=== PATIENT | female | born 1975 | race African-American/Black ===

== ENCOUNTER 2024-11-12 10:28 | Outpatient (AMB) | payer OTHER, SELFPAY ==
--- NOTE | 2024-11-12 10:30 | A.OFFVIS_ITS ---
Vital Signs 11/12/24 10:31 Height 5 ft 3 in Weight 207 lb BMI 36.7 BP 110/70 Blood Pressure Location Lt brachial Position Sitting Respiration 16 Pulse 90 Pulse Source Pulse Oximeter Pulse Oximetry (%) 97 Oxygen Delivery Method Room Air Intake Visit Reasons: Lumbar spondylosis Clinical Pharmacy Manager Required: No Allergies No Known Allergies Allergy (Verified 11/12/24 10:34) Medication List - Last Reconciled 11/12/24 by Isabella Lepe LPN albuterol sulfate 90 mcg/actuation inhalation sumatriptan succinate 50 mg PO DAILY PRN HPI HPI Lumbar spondylosis: Details: History of Present Illness The patient is a 49-year-old female presenting with back pain following a fall at work. The incident occurred on April 07, 2024, when she slipped on ice, injuring her upper and lower back and hitting the back of her head. She did not experience any loss of consciousness at the time of the fall. Post-fall, she developed pain between her shoulder blades and across her lower back, with tenderness and tightness that worsened over time. She has been experiencing pain rated at 6/10, which increases to 6-7/10 in the afternoon and evening, but is relatively better in the morning at 5/10. The patient has been using muscle relaxants, applying heat, and resting at home, which have provided mild symptom relief. She has also engaged in stretching exercises and used a roller to alleviate upper back tightness. She attended physical therapy sessions twice a week for two months, where she was given stretches to perform at home. An MRI was conducted at [facility], but she did not bring the disc with her to the appointment. The patient reports that her lower back pain has improved, but she continues to experience symptoms suggestive of sciatica, with pain radiating down her legs. Her upper back remains tight but is less problematic than her lower back. The MRI findings indicated degenerative disc disease and arthritic changes in the spine, but no nerve compression was observed. Pain Description - Onset: Pain began after a fall on April 07, 2024. - Quality: Pain is described as tightness and tenderness. - Location: Pain is located between the shoulder blades and across the lower back. - Radiation: Pain radiates down the legs, suggestive of sciatica. - Severity: Pain is rated at 6/10, increasing to 6-7/10 in the afternoon and evening, and 5/10 in the morning. - Exacerbating Factors: Pain worsens with activity throughout the day. - Relieving Factors: Mild relief with muscle relaxants, heat application, and stretching exercises. Physical Exam - Appears afebrile. - Alert and oriented. - Mood and affect appropriate. - Follows and participates in conversation appropriately. - Respiratory effort is unlabored. Results - MRI: Degenerative disc disease and arthritic changes in the spine, no nerve compression observed. Pain Management - Affect: Pain impacts daily activities, causing discomfort and limiting mobil ity. - Analgesia: Current pain level is 6-7/10, managed with muscle relaxants and heat application. - Adverse Effects: No adverse effects from current pain management reported. - Activities of Daily Living: Pain interferes with daily activities, worsens with movement. - Aberrant Drug Related Behaviors: No aberrant behaviors reported. [facility] Medical History (Updated 11/08/24 @ 09:27 by Isabella Lepe LPN) Lumbar radiculopathy Lumbar spondylolysis Physical Exam Vital Signs: Last Vital Signs Pulse 90 11/12/24 10:31 Resp 16 11/12/24 10:31 BP 110/70 11/12/24 10:31 Pulse Ox 97 11/12/24 10:31 Oxygen Delivery Method Room Air 11/12/24 10:31 BMI result Body Mass Index 36.7 Assessment & Plan Assessment & Plan (1) Lumbar spondylolysis: Code(s): M43.06 - Spondylolysis, lumbar region Category: Medical (2) Lumbar radiculopathy: Code(s): M54.16 - Radiculopathy, lumbar region Category: Medical Plan Plan Patient was informed and verbally consented to the use of an ambient scribe for clinic note documentation during this visit. 1. Degenerative Disc Disease - Recommendation to continue with stretching exercises and swimming for three to four months. - If symptoms persist, consider further intervention with injections. 2. Arthritic Joints In The Spine - Engage in weightless exercises such as swimming to relieve joint stress. 3. Sciatica - Continue with current pain management strategies and monitor symptoms. Discussion Notes I discussed with the patient that her MRI showed degenerative disc disease and arthritic changes, but no nerve compression. I recommended continuing with stretching and swimming for three to four months to alleviate symptoms. If symptoms persist, we may consider further interventions such as injections. Patient Instructions - Continue stretching exercises and consider swimming to help relieve back pain. - Monitor symptoms and return for follow-up if pain persists after three to four months. - Avoid any procedures or injections until further evaluation. Coding Level of Care Code New Pt Level 4 (24336) Diagnoses Lumbar spondylolysis M43.06 Lumbar radiculopathy M54.16
[2024-11-12 10:31] VITALS: BP 110/70; PULSE 90; RESP 16; O2SAT 97; BMI 36.7
--- OUTSIDE RECORDS SUMMARY | 2024-11-12 11:20 | XMS_ITS | Data Portability ---
Author Organization [facility], Main Office Address [address] [facility] [address] [place] [id number] Care Team Providers Care Manager Shipping Name Role Phone ESTIVEN WILSONENIA Transplant Nurse Practitioner [phone] SOFIA CENTENO Primary Care Provider LIANNE PIZARRO [employer] Assessment Encounter Date Assessment Date Assessment LastModified by Organization Details LastModified Time 05/01/2023 05/01/2023 Discussed with patient the signs/symptom s warranted for a return to office visit and/or an ER visit. Patient understood and agreed with the plan. Not available 05/01/2023 15:14:11 Plan of Treatment Reminders Order Date Submit Date Provider Last Modified By Organization Details Last Modified Time Details Appointments UV30 2025 09:30A M SOFIA CENTENO MD Not available Not available Not available Lab pap, IG + HPV, cervic al 2024 025 VERN [facility] (Centralized Electronic Ordering - All Locations), Patient Can Go To The Location Of Their Choice, [id number] 06/17/2024 12:07:09 lipid panel, serum 2024 025 VERN [facility], [address], [place], [address], 06/16/2024 06:12:34 BMP, serum or plasma 2024 025 [facility]ERN [facility], [address], [place], [address], 06/16/2024 06:12:34 CBC w/ auto diff 2024 025 VERN [facility], [address], [place], [address], 06/16/2024 06:12:33 TSH, ultra- sensit madelyn, serum 2024 025 [facility]ERN [facility], [address], [place], [address], 06/16/2024 06:12:35 rapid flu (A+B) 2023 024 VERN In-Office Order, Internal Use Only DO Not Attach Compendium DO Not Attach Compendium, Do Not Delete/merge, [id number] 05/01/2023 16:00:02 lipid panel, serum 2023 024 VERN [facility], [address], [place], [address], 05/01/2023 06:08:09 BMP, serum or plasma 2023 024 VERN [facility], [address], [place], [address], 05/01/2023 06:08:09 CBC w/ auto diff 2023 024 VERN [facility], [address], [place], [address], 05/01/2023 06:08:07 TSH, ultra- sensit madelyn, serum 2023 024 VERN [facility], [address], [place], [address], 05/01/2023 06:08:10 vagina l pathog ens panel, ABHI+pr obe, vagina l fluid 2023 024 VERN [facility] (Centralized Electronic Ordering - All Locations), Patient Can Go To The Location Of Their Choice, [id number] 05/02/2023 06:08:16 HIV 1 + 2 RNA panel, ABHI+pr obe, serum or plasma 2023 024 VERN [facility] (Centralized Electronic Ordering - All Locations), Patient Can Go To The Location Of Their Choice, [id number] 05/01/2023 06:08:10 Referral sleep medici ne referr al 2023 024 [facility], [address] [facility], [place], [address], 05/20/2023 14:40:59 Procedures None record ed. Surgeries None record ed. Imaging MAMMO, screen ing, bilate ral 2024 025 VERN Not available 08/09/2024 10:40:50 Medication Orders sumatr iptan 50 mg tablet 2024 025 [facility]/Pharmacy #[id number], [address] [place], [address], 06/15/2024 09:08:31 sumatr iptan 50 mg tablet 2023 024 [email or web address] s [facility]/Pharmacy #0488, [address] [place], [address], 05/01/2023 15:02:34 albute rol sulfat e HFA 90 mcg/ac tuatio n aeroso l inhale r 2022 023 [facility]/Pharmacy #0488, [address] [place], [address], 11/15/2022 16:11:03 Advair Diskus 500 mcg-50 mcg/do se powder for inhala tion 2022 023 rolandoe [facility]/Pharmacy #0488, [address] [place], [address], 04/29/2023 10:21:37 sumatr iptan 50 mg tablet 2022 023 [facility]/Pharmacy #[id number], [address] [place], [address], 11/15/2022 16:11:03 valacy clovir 1 gram tablet 2022 023 [facility]/Pharmacy #[id number], [address] [place], [address], 04/29/2023 10:22:05 sumatr iptan 50 mg tablet 2022 023 VERN [facility]/Pharmacy #0488, [address] [place], [address], 10/11/2022 15:59:13 Medrol (Reyes) 4 mg tablet s in a dose pack [address]/Pharmacy #0488, [address] [place], [address], 06/15/2024 08:47:45 hydrox yzine HCl 25 mg tablet 2022 023 [address] [place], [address], 11/15/2022 15:52:48 triamc inolon e aceton raimundo 0.5 % topica l cream 2022 023 [facility]/Pharmacy #[id number], [address] [place], [address], 04/29/2023 10:22:09 Patient TargetsNo targets recorded. Patient Instructions Encounter Date Encounter Id Patient Instructions Last Modified By Organization Details Last Modified Time 10/11/2022 [id number] cold sores: care instructions [email or web address] Not available 10/11/2022 15:59:08 04/29/2023 [id number] well visit, wome n 50 to 65: care instructions Not available 04/29/2023 10:41:57 medical record request* [email or web address] Not available 04/29/2023 15:12:16 sleep apnea: car e instructions Not available 04/29/2023 10:42:35 starting a weigh t loss plan: care instructions Not available 04/29/2023 12:19:20 Nutrition Referral and Weight Management Follow-up Information Not available 04/29/2023 12:19:20 HIV testing: car e instructions Not available 04/29/2023 10:41:58 05/01/2023 [id number] viral respirator y infection: care instructions Not available 05/01/2023 15:31:37 06/15/2024 [id number] well visit, wome n 50 to 65: care instructions Not available 06/15/2024 09:08:29 sleep apnea: car e instructions Not available 06/15/2024 09:08:29 Reason for Referral Sleep Medicine Referral for Sleep apnea Referring Physician: Sofia Centeno, Family Medicine, Encounter Date: 04/29/2023 Results Created Date Observation Date Name Description Value Unit Range Abnormal Flag Note LastModifiedBy Organization Detail LastModifiedTime 04/29/19 24 04/30/2023 CBC WITH DIFFE RENTI AL/PL ATELE T WBC 4.0 x10e3 /uL 3.4-10 .8 Not Available [facility] ([facility]) [address] [place], [address], 05/01/2023 06:08:07 04/29/19 24 04/30/2023 CBC WITH DIFFE RENTI AL/PL ATELE T RBC 3.88 x10e6 /uL 3.77-5 .28 Not Available [facility] ([facility]) [address] [place], [address], 05/01/2023 06:08:07 04/29/19 24 04/30/2023 CBC WITH DIFFE RENTI AL/PL ATELE T hemoglobin 11.0 g/dL 11.1-1 5.9 below low normal Not Available [facility] ([facility]) [address] [place], [address], 05/01/2023 06:08:07 04/29/19 24 04/30/2023 CBC WITH DIFFE RENTI AL/PL ATELE T hematocrit 32.7 % 34.0-4 6.6 below low normal Not Available [facility] ([facility]) [address] [facility], [place], [address], 05/01/2023 06:08:07 04/29/19 24 04/30/2023 CBC WITH DIFFE RENTI AL/PL ATELE T MCV 84 fL 79-97 Not Available [facility] ([facility]) [address] [place], [address], 05/01/2023 06:08:07 04/29/19 24 04/30/2023 CBC WITH DIFFE RENTI AL/PL ATELE T MCH 28.4 pg 26.6-3 3.0 Not Available [facility] ([facility]) [address] [place], [address], 05/01/2023 06:08:07 04/29/19 24 04/30/2023 CBC WITH DIFFE RENTI AL/PL ATELE T MCHC 33.6 g/dL 31.5-3 5.7 Not Available [facility] ([facility]) [address] [facility], [place], [address], 05/01/2023 06:08:07 04/29/19 24 04/30/2023 CBC WITH DIFFE RENTI AL/PL ATELE T RDW 13.0 % 11.7-1 5.4 Not Available [facility] ([facility]) [address] [place], [address], 05/01/2023 06:08:07 04/29/19 24 04/30/2023 CBC WITH DIFFE RENTI AL/PL ATELE T platelets 354 x10e3 /uL 150-45 0 Not Available [facility] ([facility]) [address] [place], [address], 05/01/2023 06:08:07 04/29/19 24 04/30/2023 CBC WITH DIFFE RENTI AL/PL ATELE T neutrophils 38 % not estab. Not Available [facility] ([facility]) [address] [facility], [place], [address], 05/01/2023 06:08:07 04/29/19 24 04/30/2023 CBC WITH DIFFE RENTI AL/PL ATELE T lymphs 40 % not estab. Not Available [facility] ([facility]) [address] [facility], [place], [address], 05/01/2023 06:08:07 04/29/19 24 04/30/2023 CBC WITH DIFFE RENTI AL/PL ATELE T monocytes 14 % not estab. Not Available [facility] ([facility]) [address] [facility], [place], [address], 05/01/2023 06:08:07 04/29/19 24 04/30/2023 CBC WITH DIFFE RENTI AL/PL ATELE T eos 6 % not estab. Not Available [facility] ([facility]) [address] [facility], [place], [address], 05/01/2023 06:08:07 04/29/19 24 04/30/2023 CBC WITH DIFFE RENTI AL/PL ATELE T basos 2 % not estab. Not Available [facility] ([facility]) [address] [facility], [place], [address], 05/01/2023 06:08:07 04/29/19 24 04/30/2023 CBC WITH DIFFE RENTI AL/PL ATELE T immature cells POINT OF SALE ASSOCIATE Not Available [facility] ([facility]) [address] [facility], [place], [address], 05/01/2023 06:08:07 04/29/19 24 04/30/2023 CBC WITH DIFFE RENTI AL/PL ATELE T neutrophils (absolute) 1.5 x10e3 /uL 1.4-7. 0 Not Available [facility] ([facility]) [address] [facility], [place], [address], 05/01/2023 06:08:07 04/29/19 24 04/30/2023 CBC WITH DIFFE RENTI AL/PL ATELE T lymphs (absolute) 1.6 x10e3 /uL 0.7-3. 1 Not Available [facility] ([facility]) [address] [facility], [place], [address], 05/01/2023 06:08:07 04/29/19 24 04/30/2023 CBC WITH DIFFE RENTI AL/PL ATELE T monocytes(ab solute) 0.6 x10e3 /uL 0.1-0. 9 Not Available [facility] ([facility]) [address] [facility], [place], [address], 05/01/2023 06:08:07 04/29/19 24 04/30/2023 CBC WITH DIFFE RENTI AL/PL ATELE T eos (absolute) 0.2 x10e3 /uL 0.0-0. 4 Not Available [facility] ([facility]) [address] [facility], [place], [address], 05/01/2023 06:08:07 04/29/19 24 04/30/2023 CBC WITH DIFFE RENTI AL/PL ATELE T baso (absolute) 0.1 x10e3 /uL 0.0-0. 2 Not Available [facility] ([facility]) [address] [facility], [place], [address], 05/01/2023 06:08:07 04/29/19 24 04/30/2023 CBC WITH DIFFE RENTI AL/PL ATELE T immature granulocytes 0 % not estab. Not Available [facility] ([facility]) [address] [facility], [place], [address], 05/01/2023 06:08:07 04/29/19 24 04/30/2023 CBC WITH DIFFE RENTI AL/PL ATELE T immature grans (abs) 0.0 x10e3 /uL 0.0-0. 1 Not Available [facility] ([facility]) [address] [place], [address], 05/01/2023 06:08:07 04/29/19 24 04/30/2023 CBC WITH DIFFE RENTI AL/PL ATELE T NRBC POINT OF SALE ASSOCIATE Not Available [facility] ([facility]) [address] [place], [address], 05/01/2023 06:08:07 04/29/19 24 04/30/2023 CBC WITH DIFFE RENTI AL/PL ATELE T hematology comments: POINT OF SALE ASSOCIATE Not Available [facility] ([facility]) [address] [facility], [place], [address], 05/01/2023 06:08:07 04/29/19 24 04/30/2023 BASIC METAB OLIC PANEL (8) glucose 95 mg/dL 70-99 Not Available [facility] ([facility]) [address] [place], [address], 05/01/2023 06:08:08 04/29/19 24 04/30/2023 BASIC METAB OLIC PANEL (8) BUN 9 mg/dL 6-24 Not Available [facility] ([facility]) [address] [place], [address], 05/01/2023 06:08:08 04/29/19 24 04/30/2023 BASIC METAB OLIC PANEL (8) creatinine 0.86 mg/dL 0.57-1 .00 Not Available [facility] ([facility]) [address] [place], [address], 05/01/2023 06:08:08 04/29/19 24 04/30/2023 BASIC METAB OLIC PANEL (8) eGFR 82 mL/mi n/1.7 3 >59 Not Available [facility] ([facility]) [address] [place], [address], 05/01/2023 06:08:08 04/29/19 24 04/30/2023 BASIC METAB OLIC PANEL (8) BUN/creatini ne ratio 10 9-23 Not Available [facility] ([facility]) [address] [facility] [place], [address], 05/01/2023 06:08:08 04/29/19 24 04/30/2023 BASIC METAB OLIC PANEL (8) sodium 140 mmol/ L 134-14 4 Not Available [facility] ([facility]) [address] [facility] [place], [address], 05/01/2023 06:08:08 04/29/19 24 04/30/2023 BASIC METAB OLIC PANEL (8) potassium 4.2 mmol/ L 3.5-5. 2 Not Available [facility] ([facility]) [address] [place], [address], 05/01/2023 06:08:08 04/29/19 24 04/30/2023 BASIC METAB OLIC PANEL (8) chloride 105 mmol/ L 96-106 Not Available [facility] ([facility]) [address] [place], [address], 05/01/2023 06:08:08 04/29/19 24 04/30/2023 BASIC METAB OLIC PANEL (8) carbon dioxide, total 20 mmol/ L 20-29 Not Available [facility] ([facility]) [address] [place], [address], 05/01/2023 06:08:08 04/29/19 24 04/30/2023 BASIC METAB OLIC PANEL (8) calcium 9.1 mg/dL 8.7-10 .2 Not Available [facility] ([facility]) [address] [place], [address], 05/01/2023 06:08:08 04/29/19 24 04/30/2023 LIPID PANEL cholesterol, total 154 mg/dL 100-19 9 Not Available [facility] ([facility]) [address] [facility], [place], [address], 05/01/2023 06:08:09 04/29/19 24 04/30/2023 LIPID PANEL triglyceride s 205 mg/dL 0-149 above high normal Not Available [facility] ([facility]) [address] [facility], [place], [address], 05/01/2023 06:08:09 04/29/19 24 04/30/2023 LIPID PANEL HDL cholesterol 48 mg/dL >39 Not Available [facility] ([facility]) [address] [facility], [place], [address], 05/01/2023 06:08:09 04/29/19 24 04/30/2023 LIPID PANEL VLDL cholesterol marcella 34 mg/dL 5-40 Not Available [facility] ([facility]) [address] [facility], [place], [address], 05/01/2023 06:08:09 04/29/19 24 04/30/2023 LIPID PANEL LDL chol calc ([facility]) 72 mg/dL 0-99 Not Available [facility] ([facility]) [address] [facility], [place], [address], 05/01/2023 06:08:09 04/29/19 24 04/30/2023 LIPID PANEL comment: POINT OF SALE ASSOCIATE Not Available [facility] ([facility]) [address] [facility], [place], [address], 05/01/2023 06:08:09 04/29/19 24 04/30/2023 HIV-1 /HIV- 2 QUALI TATIV E RNA HIV-1 RNA Non Reacti ve non reacti ve Not Available [facility] ([facility]) [address] [place], [address], 05/01/2023 06:08:10 04/29/19 24 04/30/2023 HIV-1 /HIV- 2 QUALI TATIV E RNA HIV-2 RNA Non Reacti ve non reacti ve Not Available [facility] ([facility]) [address] [facility], [place], [address], 05/01/2023 06:08:10 04/29/19 24 04/30/2023 TSH RFX ON ABNOR MAL TO FREE T4 TSH 2.410 uIU/m L 0.450- 4.500 Not Available [facility] ([facility]) [address] [facility], [place], [address], 05/01/2023 06:08:10 04/29/19 24 04/30/2023 NUSWA B VAGIN ITIS PLUS (VG+) atopobium vaginae High - 2 score abnormal Not Available [facility] ([facility]) [address] [facility], [place], [address], 05/02/2023 06:08:16 04/29/19 24 04/30/2023 NUSWA B VAGIN ITIS PLUS (VG+) bvab 2 High - 2 score abnormal Not Available [facility] ([facility]) [address] [facility], [place], [address], 05/02/2023 06:08:16 04/29/19 24 04/30/2023 NUSWA B VAGIN ITIS PLUS (VG+) megasphaera 1 High - 2 score abnormal Calcu late total score by salenain g the 3 indiv idual bacte rial vagin osis (BV) marke r score s toget her. Total score is inter prete d as follo ws: Total score 0-1: Indic ates the absen ce of BV. Total score 2: Indet ermin ate for BV. Addit ional clini marcella data shoul d be evalu ated to estab killian a diagn osis. Total score 3-6: Indic ates the prese nce of BV. This test was devel oped and its perfo rmanc e antionette cteri stics deter mined by [facility]. It has not been clear ed or appro faizan by the Food and Drug Admin istra tion. Not Available [facility] ([facility]) [address] [place], [address], 05/02/2023 06:08:16 04/29/19 24 05/01/2023 NUSWA B VAGIN ITIS PLUS (VG+) shira albicans, ABHI Positi ve negati ve abnormal Not Available [facility] ([facility]) [address] [place], [address], 05/02/2023 06:08:16 04/29/19 24 05/01/2023 NUSWA B VAGIN ITIS PLUS (VG+) shira glabrata, ABHI Negati ve negati ve Not Available [facility] ([facility]) [address] [place], [address], 05/02/2023 06:08:16 04/29/19 24 05/02/2023 NUSWA B VAGIN ITIS PLUS (VG+) trich vag by ABHI Negati ve negati ve Not Available [facility] ([facility]) [address] [place], [address], 05/02/2023 06:08:16 04/29/19 24 05/02/2023 NUSWA B VAGIN ITIS PLUS (VG+) chlamydia trachomatis, ABHI Negati ve negati ve Not Available [facility] ([facility]) [address] [place], [address], 05/02/2023 06:08:16 04/29/19 24 05/02/2023 NUSWA B VAGIN ITIS PLUS (VG+) neisseria gonorrhoeae, ABHI Negati ve negati ve Not Available [facility] ([facility]) [address] [place], [address], 05/02/2023 06:08:16 05/01/19 24 05/01/2023 rapid flu (A+B) Flu A negati ve Not Available In-Office Order Internal Use Only DO Not Attach Compendium DO Not Attach Compendium, Do Not Delete/merge, [id number] 05/01/2023 15:16:09 05/01/19 24 05/01/2023 rapid flu (A+B) Flu B negati ve Not Available In-Office Order Internal Use Only DO Not Attach Compendium DO Not Attach Compendium, Do Not Delete/merge, [id number] 05/01/2023 15:16:09 06/16/19 25 06/15/2024 CBC WITH DIFFE RENTI AL/PL ATELE T WBC 6.0 x10e3 /uL 3.4-10 .8 normal Not Available [facility] ([facility]) [address] [place], [address], 06/16/2024 06:12:33 06/16/19 25 06/15/2024 CBC WITH DIFFE RENTI AL/PL ATELE T RBC 4.08 x10e6 /uL 3.77-5 .28 normal Not Available [facility] ([facility]) [address] [place], [address], 06/16/2024 06:12:33 06/16/19 25 06/15/2024 CBC WITH DIFFE RENTI AL/PL ATELE T hemoglobin 11.5 g/dL 11.1-1 5.9 normal Not Available [facility] ([facility]) [address] [place], [address], 06/16/2024 06:12:33 06/16/19 25 06/15/2024 CBC WITH DIFFE RENTI AL/PL ATELE T hematocrit 34.3 % 34.0-4 6.6 normal Not Available [facility] ([facility]) [address] [place], [address], 06/16/2024 06:12:33 06/16/19 25 06/15/2024 CBC WITH DIFFE RENTI AL/PL ATELE T MCV 84 fL 79-97 normal Not Available [facility] ([facility]) [address] [facility], [place], [address], 06/16/2024 06:12:33 06/16/1906/15/2024 CBC WITH DIFFE RENTI AL/PL ATELE T MCH 28.2 pg 26.6-3 3.0 normal Not Available [facility] ([facility]) [address] [facility], [place], [address], 06/16/2024 06:12:33 06/16/19 25 06/15/2024 CBC WITH DIFFE RENTI AL/PL ATELE T MCHC 33.5 g/dL 31.5-3 5.7 normal Not Available [facility] ([facility]) [address] [facility], [place], [address], 06/16/2024 06:12:33 06/16/19 25 06/15/2024 CBC WITH DIFFE RENTI AL/PL ATELE T RDW 15.2 % 11.7-1 5.4 Not Available [facility] ([facility]) [address] [facility], [place], [address], 06/16/2024 06:12:33 06/16/1906/15/2024 CBC WITH DIFFE RENTI AL/PL ATELE T platelets 307 x10e3 /uL 150-45 0 normal Not Available [facility] ([facility]) [address] [place], [address], 06/16/2024 06:12:33 06/16/1906/15/2024 CBC WITH DIFFE RENTI AL/PL ATELE T neutrophils 36 % not estab. normal Not Available [facility] ([facility]) [address] [place], [address], 06/16/2024 06:12:33 06/16/19 25 06/15/2024 CBC WITH DIFFE RENTI AL/PL ATELE T lymphs 49 % not estab. normal Not Available [facility] ([facility]) [address] [place], [address], 06/16/2024 06:12:33 06/16/19 25 06/15/2024 CBC WITH DIFFE RENTI AL/PL ATELE T monocytes 10 % not estab. normal Not Available [facility] ([facility]) [address] [facility], [place], [address], 06/16/2024 06:12:33 06/16/19 25 06/15/2024 CBC WITH DIFFE RENTI AL/PL ATELE T eos 4 % not estab. normal Not Available [facility] ([facility]) [address] [place], [address], 06/16/2024 06:12:33 06/16/19 25 06/15/2024 CBC WITH DIFFE RENTI AL/PL ATELE T basos 1 % not estab. normal Not Available [facility] ([facility]) [address] [place], [address], 06/16/2024 06:12:33 06/16/19 25 06/15/2024 CBC WITH DIFFE RENTI AL/PL ATELE T immature cells POINT OF SALE ASSOCIATE Not Available [facility] ([facility]) [address] [place], [address], 06/16/2024 06:12:33 06/16/19 25 06/15/2024 CBC WITH DIFFE RENTI AL/PL ATELE T neutrophils (absolute) 2.2 x10e3 /uL 1.4-7. 0 normal Not Available [facility] ([facility]) [address] [place], [address], 06/16/2024 06:12:33 06/16/1906/15/2024 CBC WITH DIFFE RENTI AL/PL ATELE T lymphs (absolute) 2.9 x10e3 /uL 0.7-3. 1 normal Not Available [facility] ([facility]) [address] [place], [address], 06/16/2024 06:12:33 06/16/19 25 06/15/2024 CBC WITH DIFFE RENTI AL/PL ATELE T monocytes(ab solute) 0.6 x10e3 /uL 0.1-0. 9 normal Not Available [facility] ([facility]) [address] [facility], [place], [address], 06/16/2024 06:12:33 06/16/1906/15/2024 CBC WITH DIFFE RENTI AL/PL ATELE T eos (absolute) 0.3 x10e3 /uL 0.0-0. 4 normal Not Available [facility] ([facility]) [address] [place], [address], 06/16/2024 06:12:33 06/16/19 25 06/15/2024 CBC WITH DIFFE RENTI AL/PL ATELE T baso (absolute) 0.1 x10e3 /uL 0.0-0. 2 normal Not Available [facility] ([facility]) [address] [place], [address], 06/16/2024 06:12:33 06/16/1906/15/2024 CBC WITH DIFFE RENTI AL/PL ATELE T immature granulocytes 0 % not estab. Not Available [facility] ([facility]) [address] [place], [address], 06/16/2024 06:12:33 06/16/19 25 06/15/2024 CBC WITH DIFFE RENTI AL/PL ATELE T immature grans (abs) 0.0 x10e3 /uL 0.0-0. 1 Not Available [facility] ([facility]) [address] [place], [address], 06/16/2024 06:12:33 06/16/19 25 06/15/2024 CBC WITH DIFFE RENTI AL/PL ATELE T NRBC POINT OF SALE ASSOCIATE Not Available [facility] ([facility]) [address] [place], [address], 06/16/2024 06:12:33 06/16/19 25 06/15/2024 CBC WITH TAWNY ENGLISH AL/REDD Rosenberg hematology comments: POINT OF SALE ASSOCIATE Not Available [facility] ([facility]) [address], [place], [address], 06/16/2024 06:12:33 06/16/19 25 06/16/2024 BASIC METAB OLIC PANEL (8) glucose 98 mg/dL 70-99 normal Not Available [facility] ([facility]) [address], [place], [address], 06/16/2024 06:12:34 06/16/19 25 06/16/2024 BASIC METAB OLIC PANEL (8) BUN 15 mg/dL 6-24 normal Not Available [facility] ([facility]) [address] [facility], [place], [address], 06/16/2024 06:12:34 06/16/19 25 06/16/2024 BASIC METAB OLIC PANEL (8) creatinine 0.76 mg/dL 0.57-1 .00 normal Not Available [facility] ([facility]) [address] [facility], [place], [address], 06/16/2024 06:12:34 06/16/19 25 06/16/2024 BASIC METAB OLIC PANEL (8) eGFR 95 mL/mi n/1.7 3 >59 normal Not Available [facility] ([facility]) [address] [facility], [place], [address], 06/16/2024 06:12:34 06/16/19 25 06/16/2024 BASIC METAB OLIC PANEL (8) BUN/creatini ne ratio 20 9-23 normal Not Available [facility] ([facility]) [address] [facility], [place], [address], 06/16/2024 06:12:34 06/16/19 25 06/16/2024 BASIC METAB OLIC PANEL (8) sodium 139 mmol/ L 134-14 4 normal Not Available [facility] ([facility]) [address] [place], [address], 06/16/2024 06:12:34 06/16/19 25 06/16/2024 BASIC METAB OLIC PANEL (8) potassium 4.5 mmol/ L 3.5-5. 2 normal Not Available [facility] [facility]) [address] [place], [address], 06/16/2024 06:12:34 06/16/19 25 06/16/2024 BASIC METAB OLIC PANEL (8) chloride 104 mmol/ L 96-106 normal Not Available [facility] ([facility]) [address] [place], [address], 06/16/2024 06:12:34 06/16/19 25 06/16/2024 BASIC METAB OLIC PANEL (8) carbon dioxide, total 17 mmol/ L 20-29 below low normal Not Available [facility] ([facility]) [address] [place], [address], 06/16/2024 06:12:34 06/16/19 25 06/16/2024 BASIC METAB OLIC PANEL (8) calcium 9.1 mg/dL 8.7-10 .2 normal Not Available [facility] ([facility]) [address] [place], [address], 06/16/2024 06:12:34 06/16/19 25 06/16/2024 LIPID PANEL cholesterol, total 213 mg/dL 100-19 9 above high normal Not Available [facility] ([facility]) [address] [place], [address], 06/16/2024 06:12:34 06/16/19 25 06/16/2024 LIPID PANEL triglyceride s 134 mg/dL 0-149 normal Not Available [facility] ([facility]) [address] [place], [address], 06/16/2024 06:12:34 06/16/19 25 06/16/2024 LIPID PANEL HDL cholesterol 49 mg/dL >39 normal Not Available [facility] ([facility]) [address] [place], [address], 06/16/2024 06:12:34 06/16/19 25 06/16/2024 LIPID PANEL VLDL cholesterol marcella 24 mg/dL 5-40 Not Available [facility] ([facility]) [address] [place], [address], 06/16/2024 06:12:34 06/16/19 25 06/16/2024 LIPID PANEL LDL chol calc ([facility]) 140 mg/dL 0-99 above high normal Not Available [facility] ([facility]) [address] [place], [address], 06/16/2024 06:12:34 06/16/19 25 06/16/2024 LIPID PANEL LDL calc comment: POINT OF SALE ASSOCIATE Not Available [facility] ([facility]) [address] [place], [address], 06/16/2024 06:12:34 06/16/19 25 06/16/2024 TSH RFX ON ABNOR MAL TO FREE T4 TSH 1.590 uIU/m L 0.450- 4.500 normal Not Available [facility] ([facility]) [address] [place], [address], 06/16/2024 06:12:35 06/16/19 25 06/16/2024 IGP, APTIM A HPV HPV aptima Negati ve negati ve This nucle ic acid ampli ficat ion test detec ts fourt een high- risk HPV types (16,1 8,31, 33,35 ,39,4 5,51, 52,56 ,58,5 9,66, 68) witho ut diffe renti ation . Not Available [facility] ([facility]) [address] [place], [address], 06/17/2024 12:07:09 06/16/19 25 06/17/2024 IGP, APTIM A HPV diagnosis: Alexis MERCADO FOR INTRA EPITH ELIAL LESIO N OR AMBER GUPTA . Not Available [facility] ([facility]) [address] [place], [address], 06/17/2024 12:07:09 06/16/19 25 06/17/2024 IGP, APTIM A HPV specimen adequacy: Alexis rosenberg Satis facto ry for evalu ation . No endoc ervic al compo nent is ident ified . Not Available [facility] ([facility]) [address] [facility], [place], [address], 06/17/2024 12:07:09 06/16/19 25 06/17/2024 IGP, APTIM A HPV clinician provided ICD10: Alexis rosenberg R87.8 10 Not Available [facility] ([facility]) [address] [place], [address], 06/17/2024 12:07:09 06/16/19 25 06/17/2024 IGP, APTIM A HPV performed by: Alexis Paz, Cytol ogist (ASCP ) Not Available [facility] ([facility]) [address] [place],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 ZACHARY CARREON, MEDICATI ON AUTO-DELFINA CTIVATIO N; Not Available Not Available Not Available albuterol (refill) 90 mcg/actua tion aerosol inhaler Q 4 HOURS PRN 06/11 completed RECORDED 07/08/19 14 3:03PM BY HONG Taylor MD, ANNOTATI ON/ADDEN DUM; Not Available Not Available Not Available DentaGel 1.1 % 07/02 completed Not Available Not Available Not Available etonogest rel 0.12 mg-ethiny l estradiol 0.015 mg/24 hr vaginal ring PLEASE SEE ATTACHED FOR DETAILED DIRECTIO NS 06/15 completed Not Available Not Available Not Available azithromy reggie 500 mg tablet ONE TIME DOSE 01/07 completed RECORDED 01/10/20 09 9:55AM BY ALISHA MARIA MD, MEDICATI ON AUTO-DELFINA CTIVATIO N; Not Available Not Available Not Available cyclobenz aprine 5 mg tablet EVERY 8 HRS NEEDED FOR MUSCLE SPASM 11/15 completed RECORDED 11/21/19 12 3:45PM BY SUSAN CONWAY, MEDICATI ON AUTO-DELFINA CTIVATIO N;CAUTIO N DROWSINE SS Not Available Not Available Not Available Flovent HFA 110 mcg/actua tion aerosol inhaler Inhale 2 puffs twice a day by inhalati on route for 30 days. 03/21 completed Not Available Not Available Not Available naproxen TWO TIMES DAILY 12/05 completed RECORDED 12/06/19 12 6:57AM BY SUSAN CONWAY, MEDICATI ON AUTO-DELFINA CTIVATIO N; Not Available Not Available Not Available Hycotuss Expectora nt Q 4HR/PRN 05/03 completed RECORDED 05/08/19 07 9:32AM BY ABY BRAGG MD, MEDICATI ON AUTO-DELFINA CTIVATIO N; Not Available Not Available Not Available Vitamin D3 50 mcg (2,000 unit) capsule Take 1 capsule every day by oral route as directed for 90 days. 03/21 completed Not Available Not Available Not Available Alyacen 1/35 (28) 1 mg-35 mcg tablet DAILY 06/05 completed Not Available Not Available Not Available Larissia 0.1 mg-20 mcg tablet 03/21 completed Not Available Not Available Not Available Vitals Date Recorded Body height Body mass index (BMI) Body weight Heart rate Oxygen saturation Oxygen saturation in Arterial blood by Pulse oximetry Body temperature Systolic And Diastolic Provider Name and Address Organization Details Last Updated DateTime 4 160.02 cm 35 kg/m2 27150.8 g 93 /min 97 % 97 % 98.2 [degF] 106/73 mm[Hg] Brenona Carpio MA [facility] 4 10:20:48 Date Recorded Body height Body mass index (BMI) Body weight Heart rate Oxygen saturation Oxygen saturation in Arterial blood by Pulse oximetry Body temperature Systolic And Diastolic Provider Name and Address Organization Details Last Updated DateTime 4 160.02 cm 34.9 kg/m2 37517.7 g 94 /min 98 % 98 % 98 [degF] 108/73 mm[Hg] Royce lal MA [facility] 4 15:11:22 Date Recorded Body height Body mass index (BMI) Body weight Oxygen saturation Oxygen saturation in Arterial blood by Pulse oximetry Heart rate Body temperature Systolic And Diastolic Provider Name and Address Organization Details Last Updated DateTime 5 160.02 cm 36.4 kg/m2 67224.8 4 g 98 % 98 % 85 /min 97.4 [degF] 104/69 mm[Hg] Silva Carter MA [facility] 5 08:46:41 Date Recorded Body height Body mass index (BMI) Body weight Heart rate Oxygen saturation Oxygen saturation in Arterial blood by Pulse oximetry Body temperature Systolic And Diastolic Provider Name and Address Organization Details Last Updated DateTime 3 160.02 cm 33.7 kg/m2 32227.5 5 g 80 /min 99 % 99 % 97.8 [degF] 123/76 mm[Hg] Royce lal MA [facility] 3 15:33:25 Date Recorded Body height Body mass index (BMI) Body weight Oxygen saturation Oxygen saturation in Arterial blood by Pulse oximetry Heart rate Body temperature Systolic And Diastolic Provider Name and Address Organization Details Last Updated DateTime 3 160.02 cm 34.4 kg/m2 37100.9 2 g 98 % 98 % 83 /min 98 [degF] 112/68 mm[Hg] Silva Carter MA [facility] 3 15:52:06 Social History Question Answer Notes LastModified by Organizat ion Details LastModified Time Tobacco Smoking Status Never Smoker Herve Godoy [facility] 12/10/2013 09:08:06 Do You Have An Advance Directive? No Information not available 03/21/2021 Is Blood Transfusion Acceptable In An Emergency? Yes [email or web address] Information not available 03/18/2016 What Is Your Level Of Caffeine Consumption? Moderate Tea Information not available 04/29/2023 How Much Tobacco Do You Chew? None [email or web address] Information not available 03/21/2021 What Type Of Diet Are You Following? REGULAR Information not available 04/26/2022 Live Alone Or With Others? With Others 1 Son Information not available 04/29/2023 Do You Take Precautions To Prevent Distracted Driving? No [email or web address] Information not available 03/21/2021 How Often Do You Need To Have Someone Help You When You Read Instructions, Pamphlets, Or Other Written Material From Your Doctor Or Pharmacy? Never [email or web address] Information not available 03/21/2021 Have You Served In The ? No [email or web address] Information not available 03/18/2016 Have You Or Anyone In Your Household Had Any Of The Following Symptoms In The Last 14 Days: Sore Throat, Cough, Chills, Body Aches For Unknown Reasons, Shortness Of Breath For Unknown Reasons, Loss Of Smell, Loss Of Taste, Fever At Or Greater Than 100 Degrees Fahrenheit? No [email or web address] Information not available 08/18/2019 Are You Or Anyone In Your Household A Health Care Provider Or Emergency Responder? No [email or web address] Information not available 08/18/2019 To The Best Of Your Knowledge Have You Been In Close Proximity To Any Individual Who Tested Positive For COVID-19? No Information not available 08/18/2019 What Was The Date Of Your Most Recent Tobacco Screening? 06/15/2024 [email or web address] Information not available 06/15/2024 How Many Children Do You Have? 2 [email or web address] Information not available 03/18/2016 Do You Use Protection During Sex? Always [email or web address] Information not available 03/18/2016 Do You Use Your Seat Belt Or Car Seat Routinely? Yes Information not available 03/21/2021 Seat Belts Used Routinely Yes [email or web address] Information not available 03/21/2021 Are You Sexually Active? No Information not available 03/21/2021 Smoke Alarm In Home Yes [email or web address] Information not available 03/21/2021 Do You Have Smoke And Carbon Monoxide Detectors In Your Home? Yes [email or web address] Information not available 03/21/2021 Are You Passively Exposed To Smoke? No [email or web address] Information not available 03/21/2021 How Much Tobacco Do You Smoke? No [email or web address] Information not available 03/21/2021 Do You Use Sunscreen Routinely? Yes [email or web address] Information not available 03/18/2016 Sex: Unknown Functional Status Question Answer Note LastModified by Organizat ion Details LastModified Time Do you use any illicit or recreational drugs? No Information not available 05/01/2023 Do you or have you ever used any other forms of tobacco or nicotine? No Information not available 05/01/2023 What is your level of alcohol consumption? None [email or web address] Information not available 03/21/2021 Are you currently employed? Yes [email or web address] Information not available 03/18/2016 Are you able to walk independently without assistance or assistive devices? [email or web address] Information not available 04/26/2022 Are you able to care for yourself independently? 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 Moderate Information not available 03/21/2021 Mental Status None recorded. Family History Relationship Description Onset Age of this Age Resolved Age Notes LastModified by Organization Details LastModified Time Father Heart disease 65 [email or web address] Not available 2021 09:58:43 Father Carcinoma in situ of prostate Not available 2021 09:58:43 Mother Malignant neoplasm of pancreas 61 61 [email or web address] Not available 03/18 11:11:42 Notes:No FH of breast or col on cancer Medical History Condition Response Asthma Y Allergies Y Gynecological History Statement/Question Response Date of Last Pap Smear 02/10/2021 Date of Last Colonoscopy 11/20/2021 Most Recent Mammogram 08/06/2024 Obstetrics History GPAL:G 0 P 0 0 0 0 Immunizations Vaccine Type Date Status Note Provider Nam e and Address Organization Details Recorded Time COVID-19, mRNA, LNP-S, PF, 100 mcg/0.5mL dose or 50 mcg/0.25mL dose 05/10/2020 completed [place] Bernstein, [facility] 03/21/2021 10:00:59 COVID-19, mRNA, LNP-S, PF, 100 mcg/0.5mL dose or 50 mcg/0.25mL dose 06/09/2020 completed DIDIER Bernstein [facility] 03/21/2021 10:01:17 Tdap 08/18/2019 completed DIDIER Saldaña, [facility] 08/18/2019 14:02:23 MMR 02/24/1992 completed Not Available [facility] 08/24/2013 13:54:28 Tdap 01/03/2009 completed Not Available [facility] 08/24/2013 13:54:28 Past Encounters Encounter ID Performer Location Encounter Start Date Encounter Closed Date Diagnosis/Indication Diagnosis SNOMED-CT Code Diagnosis ICD10 Code Diagnosis IMO Codes Diagnosis Note [id number] auto[facility]Comm erce [id number] [facility] [place] [address] 04/19/2006 00:00:00 [id number] autoEComm erce [address] [facility] [place] [address] 05/07/2006 00:00:00 [id number] autoEComm erce [address] [facility] [place] [address] 09/02/2006 00:00:00 [id number] autoEComm erce [address] [facility] [place] [address] 01/03/2009 00:00:00 [id number] autoEComm erce [address] [facility] [place] [address] 07/17/2009 00:00:00 [id number] auto[facility]Comm erce [address] [facility] [place] [address] 09/17/2010 00:00:00 [id number] auto[facility]Comm erce [address] [place] [place] [address] 11/06/2011 00:00:00 [id number] auto[facility]Comm erce [address] [place] [address] 02/14/2012 00:00:00 [id number] autoEComm erce [address] [facility] [place] [address] 02/17/2013 00:00:00 [id number] autoEComm erce [address] [facility] [place] [address] 03/09/2013 00:00:00 [id number] autoEComm erce [address] [facility] [place] [address] 06/25/2013 00:00:00 [id number] autoEComm erce [address] [facility] [place] [address] 07/29/2013 00:00:00 [id number] Hong dexter MD Main Office [address] [facility] [address] [place], [place] [address] 12/10/2013 08:48:06 12/10/2013 09:45:51 Insomnia 440959169 very poor sleep, will treat with lorazepam as needed, consider counseling Anxiety 73989443 recent loss of son, anxious, will treat sleep for now [id number] Hong dexter MD Main Office [address] [facility] [address] [place], [place] [address] 12/24/2013 09:49:05 12/24/2013 10:38:05 Insomnia 564968346 sleep is better with lorazxepam , will start counseling next week here, coping as well as would be expected Anxiety 94069855 not interested in meds for anxiety or depression a tthis point, out of work, unable to focus, recent loss of son, anxious, sleeping a bit better, [id number] Hong dexter MD Main Office [address] [facility] [address] [place], [place] [address] 01/21/2014 11:26:17 01/21/2014 12:11:12 Insomnia 642587444 still very poor sleep, sad and anxious, poor focus, is in weekly counseling , continue meds for sleep and cousneling . Poor concentration 03387640 due to grieving, poos sleep, also getting hedaches. continue emd for sleep adn therapy, pt is unable to work at this point, I will see her in a month. [id number] Hong dexter MD Main Office [address] [address] [place] [address] 02/23/2014 09:55:38 02/23/2014 10:45:46 Anxiety 97009227 not interested in meds for anxiety or depression a tthis point, out of work, unable to focus, recent loss of son, anxious, sleeping a bit better, Insomnia 126545057 is grieving, sleep is better [id number] Hong dexter MD Main Office [address] [address] [place] [address] 04/29/2014 11:29:54 04/29/2014 12:27:00 Insomnia 228057264 is grieving, sleep is a bit better, med as needed Anxiety 78109779 coping ok , good supports with therapy and family [id number] Hong dexter MD Main Office [address] [address] [place] [address] 06/27/2014 10:59:18 06/27/2014 11:43:51 Adult health examination 130512695 pap is utd, will set up mammogram, starting to exercise Asthma 177397945 stable on meds Allergy 727737298 continue zyrtec [id number] CANDACE Randhawa Main Office [address] [address] [place] [address] 06/27/2015 13:28:06 06/27/2015 14:13:43 Vaginitis and vulvovaginitis 951369650 N76.0 Will tx for BV and await cultures. Use nightly x 5 nights. Increased frequency of urination 051808176 R35.0 [id number] Jone Vazquez MD Main Office [address] [address] [place] [address] 11/24/2015 13:44:36 11/24/2015 14:38:13 Patellofemoral stress syndrome 597329834 M22.2X9 Will try consrvativ e approach with home and formal PT as well as brace and PRN NSAID. Advised to call if persistent /worse as PMR eval would then be prudent. Refer to ortho if xray is unremarkab le. Anxiety 56456692 F41.9 Recurrent stress from son passing away 2 years ago and her mothers recent terminal diagnosis. Short term PRN rx provided with advice to call if symptoms are persistent or debilitati ng. [id number] Hong dexter MD Main Office [address] [address] [place] [address] 03/18/2016 11:02:13 03/18/2016 11:50:22 Adult health examination 808647827 Z00.00 pap is utd, as is mammo, unable to exercise due to right knee pain, Hypercholesterolemia 136 61183 E78.2 father with CAD/GA check random Knee pain 76122621 M25.5 61 right knee, seems like some cartilage pain also with ? of patellafem oral pain, to ortho [id number] Micah Yao PA-C Main Office [address] [place] [address] 10/07/2016 08:30:43 10/07/2016 09:50:56 Pain in right knee 0065970374 12354 M25.561 will give letter excusing her from physical exam d/t R knee pain - see below. 25 minute office visit with greater than 50% of the visit face-to-fa ce with the patient and/or family providing counseling and/or coordinati on of care. [id number] CANDACE Randhawa Main Office [address] [address] [place] [address] 06/05/2017 11:18:45 06/05/2017 12:01:44 Chest pain 81262009 R07.9 c/o chest pressure, jaw pain, nausea x 3 days. EKG in office NSR. will check labs Palpitations 83387713 R0 0.2 will check bloodwork Pure hypercholesterolemia 790827222 E78.00 Fatigue 38174077 R53.83 [id number] Hong dexter MD Main Office [address] [place] [address] [place] [address] 07/02/2017 10:46:35 07/02/2017 11:35:59 Neck pain 42190610 M54.2 fullness in front of neck as subjective symptom, will get Us to rule out any cyst/mass, unlikely, past eval with neg EKG, nl labs... Anxiety 12953929 F41.9 treat with lorazepam to see if improves, also pt to restart exercise [id number] Hong dexter MD Main Office [address] [place], [place] [address] [address] 07/11/2017 08:48:15 07/11/2017 10:38:02 Cervical lymphadenopathy 981805608 R59.0 on US, pt describes feeling of neck fullness, no adenopathy noted on exam, nl CBC and nl CXR will send Us report, labs and CXR report to oncology for advice most likely needs CT of neck but will discuss with oncology prior to ordering, motrin helps some. hopefully reactive nodes but need to make sure not a malignant process [id number] Hong dexter MD Main Office [address] [place] [address] [place] [address] 08/09/2017 10:23:21 08/09/2017 11:15:17 Adult health examination 878351692 Z00.00 pap is due,as is mammo, pt will arrange Screening for malignant neoplasm of cervix 319242632 Z12.4 pt to arrange with her nuclear weapons custodian Screening for malignant neoplasm of breast 256980883 Z12.39 pt to set up mammo Cervical lymphadenopathy 377342888 R59.0 US shows cervical nodes, pt saw ENT, they are setting up a neck CT to look at nodes. pt feels pressure in her throat, she has a lot of anxiety pt knows to followup with ENT after the CT scan Anxiety 10438775 F41.9 long talk, lots of worry over her son or herself dying, will start sertraline and start counseling with one of our in house counselors [id number] Hong dexter MD Main Office [address] [place] [address] 08/18/2019 12:52:02 08/18/2019 13:58:24 Adult health examination 187342087 Z00.00 pt will see nuclear weapons custodian and get mammogram annually restarted exercise Anxiety 26488651 F41.9 flared with covid and all going on. safe to work and carry weapon, does not use lorazepam in the day or before work, only after work as needed, consider daily med, recheck anxiety 3 months Administra tion of viral vaccine 68736157 Z23 Migraine 84272548 G43.90 9 treat as below Moderate p ersistent asthma 147821394 J45.40 start flovent [id number] Peng Haddad MD [facility] [address] [place] [address] 01/23/2020 12:29:13 01/24/2020 11:19:26 Counseling 545613804 Z71.9 Health advice, education or counseling done for COVID 19 COVID-19 [id number] U07.1 She was instructed to stay OOW for 10 days since the start of her symptoms and to return only if she is w/o symptoms for at least 3 days. She was advised to not get retested. [id number] Hong dexter MD Main Office [address] [address] 03/21/2021 09:48:41 03/21/2021 11:20:18 Adult health examination 437517683 Z00.00 Pt is in good general health. Social and family history reviewed. Immunizati ons reviewed, advised annual flu shot, declines, will get covid booster next month. . She is upt to date on dental and eye providers, mammogram UTD, last was 03/02, Discussed colon screening and doing at age 45-50. Reviewed diet and exercise. Anxiety 33971602 F41.9 had done counseling in the past, lost a son 7 years ago, drug overdose. Feels symptoms come and go. Declines med or counseling at this time, feels ok Migraine 60038796 G43.90 9 Recent increase up to 3 times a week, gets aura with headache, brought on with pressure in head from laughing or yelling, sometimes random. Has never seen neuro, used preventive meds or had imaging. She is worried about more intensity and frequency. Wants to think about preventive meds; discussed BB, TCA and topiramate . Influenza vaccination declined 027648717 Z28.21 Screening for malignant neoplasm of colon 338524904 Z12.11 pt is interested in screening, will do GI counsult Mild persi stent asthma 187699741 J45.30 uses albuterol prn [id number] Hong dexter MD Main Office [address] [facility] [address] [place] [address] 04/26/2022 10:55:13 04/26/2022 11:51:36 Adult health examination 647462524 Z00.00 all screening utd including colonoscop y Moderate p ersistent asthma 322449663 J45.40 does not want maintenanc e inhaler, uses resue as needed Migraine 40016852 G43.90 9 treat as below [id number] Arline Covarrubias MD Main Office 36[address] [facility] [address] [place] [address] 10/11/2022 14:55:41 10/11/2022 16:03:48 Eruption 066319911 R21 Suspected sand mite given.Will do oral steroid.To pical steroid given advised to avoid neck/face/ groin/ armpit.Adv ised not to use more than 2 weeks.Hydr oxyzine sent, risk of sedation discussed. Dombero solution or collidal oatmeal discussed. Red flag discussed Migraine 49770949 G43.90 9 Herpes labialis 5456548 B00.1 Noted on exam will give valtrex since giving steroids PO.Last renal function reviewed. [id number] SOFIA CENTENO MD Main Office [address] [facility] [address] [place] [address] 11/15/2022 15:39:20 11/15/2022 16:14:18 Asthma 729878307 J45.909 - currently under good control- pt was previously on maintenanc e mediation which had been stopped, will restart (advair BID)- c/w albuterol inhaler as needed, medication refilled Migraine 12331235 G43.90 9 - pt advised to keep a diary as currently she does not know how many she gets a month- c/w sumatripta n 50mg for abortive treatment, medication refilled- can take ibuprofen and tylenol as needed [id number] SOFIA CENTENO MD Main Office [address] [place] [address] 04/29/2023 10:06:05 04/29/2023 10:49:05 Adult health examination 407193782 Z00.00 Health Maintenanc e FemaleA) Patient was counseled on healthy diet, exercise and nutrition due to BMI of 35 B) ScreeningL ast Mammogram: start at age 50 stop at 74Date: 04/16/2023 Result: BIRADS-1Ne xt: 04/2024 Last Pap smear: start at age 21 to age 65Date: Results : ???Next: will request results, pt had 2 years Last Colonoscop y: start at age 45-75Date: 11/20/2021 Result: internal hemorrhoid sNext: 10 years Last DEXA scan:Date: due at 65Result: ??? C) Vaccines:I nfluenza: refusedTdA P: 08/18/2019Zo ster: due at 73ATR15: due at 08OPOZ07: due at 17BHW63:PC V15:COVID: 05/10/2020, 06/09/2020 D) Routine blood work orderedE) Updated patient's history RTC in one year for annual exam or sooner if any acute complaints Varicella vaccination 68 652212 Z23 Fatigue 65468928 R53.83 Z00.00 Hyperlipidemia 69230296 E78.5 Z00.00 FASTING HIV screening 284006779 Z11.4 Screening for malignant neoplasm of cervix 236710786 Z12.4 Migraine 14497343 G43.90 9 - pt advised to keep a diary as currently she does not know how many she gets a month- c/w sumatripta n 50mg for abortive treatment, medication refilled- can take ibuprofen and tylenol as needed Mild inter mittent asthma 653775732 J45.20 - currently under good control- c/w albuterol inhaler as needed, medication refilled Anxiety 37433327 F41.9 - CHANTAL-7 score 0- under good control- pt is not currently on any medication s- counsellin g provided Vaginal discharge 493994 006 N89.8 - complainin g of white vaginal discharge for two days with mild itching- performed vaginitis panel, if positive will sent medication SYMPTOMS: vaginal itching? yes discharge? yes recent antibiotic exposure? no feels like previous yeast infection? no POSSIBLE CONTRAINDI CATIONS TO TELEPHONE TREATMENT: pelvic pain? no fever? no ? no pain with intercours e? no PROVIDER ACTION: Reviewed nursing notes? Recommende d action Treatment Sleep apnea 75516380 G47 .30 - concern for sleep apnea- pt having lower extremity swelling and snoring- STOP-BANG 3- pt referred for a sleep study Body mass index 30+ - obesity 976897920 E66.9 Z68.35 - BMI of 35- Cut down on (limit) fast foods, sweets, and processed snack foods. - Limit alcohol intake to no more than 1- 2 drinks a day for men. One drink equals 12 oz of beer, 5 oz of wine, or 1 oz of hard liquor. - Keep a weight loss journal and keep track of the food and portions that you eat. - The exercise that you do- 4 times a week or 150 minutes cumulative of moderate exercise recommende d. [id number] Peng Haddad MD Main Office [address] [place] [address] 05/01/2023 14:55:35 05/01/2023 15:28:23 Exposure to viral disease 3909163882 14957 Z20.828 in office flu test negative Viral uppe r respiratory tract infection 696731372 J06.9 x3 days of cough, congestion , fatigue-de nies of any fever, chills, n/v/d, chest pain, or sob-OTC delsym provides relief-PE; unremarkab le, lungs were CTA b/l-discus sed with pt conservati ve measuremen ts for symptomati c relief [id number] SOFIA CENTENO MD Main Office [address] [place] [address] 06/15/2024 08:39:43 06/15/2024 09:14:46 Adult health examination 602505373 Z00.00 Health Maintenanc e FemaleA) Patient was counseled on healthy diet, exercise and nutrition due to BMI of 36.4 B) ScreeningL ast Mammogram: start at age 50 stop at 74Date: 04/16/2023 Result: BIRADS-1Ne xt: 04/2024, DUE Last Pap smear: start at age 21 to age 65Date: 12/25/2022 Results: HPV positiveNe xt: should have repeat-zaria l repeat Last Colonoscop y: start at age 45-75Date: 11/20/2021 Result: internal hemorrhoid sNext: 10 years Last DEXA scan:Date: due at 65Result: ??? C) Vaccines:I nfluenza: refusedTdA P: 08/18/2019Zo ster: ordered, not performed, remindedPC V20: orderedCOV ID: 05/10/2020, 06/09/2020 D) Routine blood work orderedE) Updated patient's history RTC in one year for annual exam or sooner if any acute complaints Mild inter mittent asthma 668837404 J45.20 - currently under good control- c/w albuterol inhaler as needed, medication refilled Migraine 01380977 G43.90 9 - pt advised to keep a diary as currently she does not know how many she gets a month- c/w sumatripta n 50mg for abortive treatment, medication refilled- can take ibuprofen and tylenol as needed Anxiety 95323940 F41.9 - CHANTAL-7 score 0- under good control- pt is not currently on any medication s- counsellin g provided Sleep apnea 97196221 G47 .30 - concern for sleep apnea- pt having lower extremity swelling and snoring- STOP-BANG 3- pt referred for a sleep study -> did not go Fatigue 20408975 R53.83 Z00.00 Hyperlipidemia 10131282 E78.5 Z00.00 FASTING Body mass index 30+ - obesity 170925242 E66.9 Z68.36 - BMI of 36.4- Cut down on (limit) fast foods, sweets, and processed snack foods.- Limit alcohol intake to no more than 1- 2 drinks a day for men. One drink equals 12 oz of beer, 5 oz of wine, or 1 oz of hard liquor.- Keep a weight loss journal and keep track of the food and portions that you eat.- The exercise that you do- 4 times a week or 150 minutes cumulative of moderate exercise recommende d. Administra tion of pneumococcal vaccine 30820684 Z23 Screening for malignant neoplasm of breast 456896002 Z12.39 Human ayana llomavirus deoxyribonucleic acid detected, high risk on cervical specimen 378763996 R87.810 150144 - HPV high risk is positive Health Concerns Section Related Observation LastModified by Organization Detai ls LastModified Time None Recorded Concern Status LastModified by Organization Details LastModified Time None Recorded Advance Directives Directive N: Payers Insurance Date Sequence Insurance Name Policy Number Policy Shaikh Covered Member ID Shaikh Member ID Guarantor Name 10/18/[address] [facility] [place] [place] [id number] Chris Anderson [id number] Chris Anderson Notes Date Note Type Note Provider Name and Address Organization Details Recorded Time 10/12/19 23 text/htm l Rash/Skin LesionReported by PatientHPIFor quality, patient reportsitchybut reportsnot painful,not bleeding, andstable. For context, patient reportsscratchingbut reportsno new detergents or skin products,no one else with similar rash, andrecent travel ([place])(laying in sand.). For location, patient reportsarms,hands,back,buttock s,legs,thighs, andfeet. For duration, patient reportshas noted for <1 week. For aggravating factors, patient reportsnothing makes it worse. For associated symptoms, patient reportsno fever,no cold symptoms,no nausea,no vomiting,no diarrhea,no urinary symptoms,no chills,no fatigue, andno change in weight. For alleviating factors, (otc).Otc antihistamine, aloe vera, hydorcortisone, calamine with some relief. Arline Covarrubias MD [address] [address], [place], [address], [facility] 10/11/2022 16:01:50 11/16/19 23 text/htm l Asthma F/UReported by PatientHPIFor severity, patient reportsable to sleep during episodeanddoes not interfere with daily activities. For onset/timing, patient reportschronic. For modifying factors, patient reportsillness. For associated symptoms, patient reportsno fever,no fatigue,no irritability,no cough,normal appetite,no changes in productivity, andno shortness of breath. HeadacheReported by PatientHPIFor location, patient reportsunilateral. For quality, patient reportsnot the worst headache everandsimilar to previous headaches. For severity, patient reportsmoderate. For duration, patient reportsintermittent. For onset/timing, patient reportsabrupt onsetandoccur every few weeks. For context, patient reportsnot related to trauma. For alleviating factors, patient reportsotc medicationandcaffeine intake.Pt will get headaches two, three times in a months will need sumatriptan with tylenol or advil. Chris Anderson is a 47 year old F who presented to the clinic for follow-up on asthma and headache. SOFIA CENTENO MD [address], [address], [facility] [place] 11/17/2022 14:50:30 04/29/19 24 text/htm l Vaginal DischargeReported by PatientHPIFor associated symptoms, patient reportsvaginal itchingbut reportsno vaginal burning,no swelling/redness,no fever/chills,no diarrhea,no abdominal pain,no pelvic pain,no vaginal pain,no pain during urination,no pain during intercourse,no vaginal lump,no genital lesion,no sexually transmitted disease, andno fever. For location, patient reportsvagina. For quality, patient reportswhite. For severity, patient reportsmild. For duration, patient reports2 days. Generic HPI TemplateReported by Patient Chris Anderson is a 48 year old F who presented to the clinic for her annual exam. Patient denies any emergency room visits or hospitalizations during this time. Complaints: vaginal discharge Is not using ASA.OTC/Herbal supplements use: none Gynecologic HistoryPatient's last menstrual period will be this weekMenstrual cycle lasts 3-5 days, without spotting/clothsMenstrual cycle: monthlySexually active: yes with partnerContraception: nuvaring+ abnormal paps, it was repeated and it was normalDenies cysts, stds, fibroids Obstetric HistoryGravida: 2Para: 2AB: 0LivinComplications: none Drug use: does notEtoh use: does nottobacco use: does notspf/derm: Dental: every 6 months, has not been in one yearEye: every year (wears glasses)Diet: regularActivity: pt started today, has a little gym at home, very little SOFIA CENTENO MD [address] [address], [place], [address], [facility] [place] 04/29/2023 12:19:48 05/01/19 24 text/htm l Upper Respiratory SymptomsReported by PatientUpper Respiratory SymptomsFor quality, patient reportsdry cough. For context, patient reportsforeign travel ([facility])andasthmabut reportsno sick contactsandnon-smoker. For associated symptoms, patient reportsfatigueandsweatsbut reportsno sore throat,no vomiting,no diarrhea,no rash, andno nausea. For location, patient reportshead. For severity, patient reportsmild. For modifying factors, patient reportsotc medication.ROS as noted in the HPI Chris is a 48yr old F who presents for cough, congestion, fatigue x3 days. Hx of asthma. Reports of recently returning from [place] on 04/24 and feeling symptoms of cough, fatigue, and congestion on 04/28. Notes of having sweats at night. Has taken delsym which provides some relief. Denies of any measureable fever at home or n/v/d. Home COVID19 test was negative. SUSAN DEVINE [address] [address], [place], [address], [facility] [place] 05/01/2023 15:32:05 06/16/19 25 text/htm l Generic HPI TemplateReported by Patient Chris Anderson is a 49 year old F who presented to the clinic for her annual exam. Patient denies any emergency room visits or hospitalizations during this time. Complaints: hurt back at work Is not using ASA.OTC/Herbal supplements use: none Gynecologic HistoryPatient's last menstrual period was 05/31/2024Menstrual cycle lasts 3-5 days, without spotting/clothsMenstrual cycle: monthlySexually active: yes with partnerContraception: none+ abnormal paps, it was repeated and it was normalDenies cysts, stds, fibroids Obstetric HistoryGravida: 2Para: 2AB: 0LivinComplications: none Drug use: does notEtoh use: does nottobacco use: does notspf/derm: Dental: every 6 monthsEye: every year (wears glasses)Diet: regular- avoids porkActivity: none SOFIA CENTENO MD [address] [address], [place], [address], [facility] [place] 06/15/2024 09:11:11 OBGyn Episode No OBEpisode recorded.
== END 2024-11-12 11:01 | disposition home or self-care (01) ==
PROVIDERS: PCP Internal Medicine; Visit Provider Internal Medicine
DX: M43.06 Spondylolysis, lumbar region (principal); M54.16 Radiculopathy, lumbar region
CPT/HCPCS: 99203

== ENCOUNTER → 2024-11-12 10:28 | Outpatient (BNVA) | payer OTHER, SELFPAY | PROVIDERS: PCP Internal Medicine; Visit Provider Internal Medicine | DX: M43.06 Spondylolysis, lumbar region (principal); M54.16 Radiculopathy, lumbar region | CPT/HCPCS: 99202 ==